=== PATIENT | female | born 1975 | race Caucasian/White ===

== ENCOUNTER → 2016-10-07 | Outpatient (CLI) | payer OTHER ==
[2016-10-07 14:53] LABS: HEMOGLOBIN 12.4 gm/dl (12.3-15.3); RED BLOOD COUNT 4.12 M/UL (4.00-5.10); WHITE BLOOD COUNT 4.7 K/UL (4.5-11.0)
== END ==
LOC: LAB 14:24
PROVIDERS: Family Medicine
DX: J98.4 Other disorders of lung (principal); N94.6 Dysmenorrhea, unspecified
CPT/HCPCS: 36415; 71020; 82670; 83001; 83002; 84702; 85025

== ENCOUNTER → 2020-08-12 | Outpatient (CLI) | payer OTHER | LOC: MRI 08:00 | DX: A49.02 Methicillin resistant Staphylococcus aureus infection, unspecified site (principal); R51.9 Headache, unspecified; R90.89 Other abnormal findings on diagnostic imaging of central nervous system | CPT/HCPCS: 70551 ==